=== PATIENT | female | born 1950 | race Caucasian/White ===

== ENCOUNTER 2017-06-19 13:18 | Emergency (ER) | payer MEDICARE, OTHER ==
[~2017-06-19] VITALS: Wt 113.6 kg
[2017-06-19] MEDS ORDERED: morphine 4 MG/ML VIAL IV STA (13:33)
[2017-06-19] MEDS ORDERED: SOD CHLORIDE 0.9% 1,000 ML IV STA (13:33)
[2017-06-19] MEDS ORDERED: FAMOTIDINE 20 MG INJ IV STA (13:33)
[2017-06-19] MEDS ORDERED: ONDANSETRON 4 MG INJ IV STA (13:33)
[2017-06-19 14:02] LABS: BASOPHILS % 0.1 % (0.0-2.0); HEMATOCRIT 43.7 % (37.0-47.0); HEMOGLOBIN 14.5 g/dl (12.0-16.0); LYMPHOCYTES # 0.6 10^3/ul (0.8-2.9); LYMPHOCYTES % 5.4 % (15.0-51.0); MEAN CORPUSCULAR HEMOGLOBIN 28.7 pg (29.0-33.0); MEAN CORPUSCULAR HGB CONC 33.2 g/dl (32.0-37.0); MEAN CORPUSCULAR VOLUME 86.5 fl (82.0-101.0); MEAN PLATELET VOLUME 10.2 fl (7.4-10.4); MONOCYTE # 0.5 10^3/ul (0.3-0.9); MONOCYTES % 3.9 % (0.0-11.0); NEUTROPHIL # 10.3 10^3/ul (1.6-7.5); NEUTROPHILS % 90.2 % (39.0-77.0); PLATELET COUNT 199 10^3/UL (140-415); RED BLOOD COUNT 5.05 10^6/ul (4.20-5.40); RED CELL DISTRIBUTION WIDTH 14.1 % (11.5-14.5); WHITE BLOOD COUNT 11.5 10^3/ul (4.8-10.8)
[2017-06-19 14:21] LABS: ALBUMIN/GLOBULIN RATIO 1.02; BILIRUBIN,INDIRECT 0.4 mg/dl (0-1.1); BILIRUBIN,TOTAL 0.4 mg/dl (0.2-1.3); POTASSIUM 4.5 mmol/L (3.5-5.1); TOTAL PROTEIN 7.9 g/dl (6.1-8.1)
[2017-06-19] MEDS ORDERED: SOD CHLORIDE 0.9% 100 ML ONE (14:40)
[2017-06-19] MEDS ORDERED: IOHEXOL 300MG/ML 150 ML BTL ONE (14:40)
[2017-06-19 15:06] LABS: ADD UMIC YES; UR ASCORBIC ACID NEGATIVE (NEGATIVE); UR BACTERIA MODERATE /HPF (NONE SEEN); UR BILIRUBIN (Dip) NEGATIVE (NEGATIVE); UR BLOOD (Dip) 1+ mg/dL (NEGATIVE); UR CLARITY CLOUDY (CLEAR); UR COLOR YELLOW (YELLOW); UR GLUCOSE (Dip) NEGATIVE (NEGATIVE); UR KETONES (Dip) NEGATIVE (NEGATIVE); UR LEUKOCYTE ESTERASE (Dip) TRACE Leu/ul (NEGATIVE); UR MUCUS FEW /HPF (NONE SEEN); UR NITRITE (Dip) POSITIVE (NEGATIVE); UR RBC 5 /HPF (0-5); UR SPECIFIC GRAVITY (Dip) 1.028 (1.003-1.030); UR SQUAMOUS EPITHELIAL CELL FEW /HPF (FEW); UR TOTAL PROTEIN (Dip) 1+ mg/dl (NEGATIVE); UR UROBILINOGEN (Dip) 1+ mg/dL (NEGATIVE)
[2017-06-19] MEDS ORDERED: CEFTRIAXONE 1 GM/50 ML (PMX) 50 ML IVPB ONE (15:30)
--- NOTE | 2017-06-19 15:59 | RADRPT ---
PROCEDURE: CT Abdomen and Pelvis with contrast. CLINICAL INDICATION: Abdomen and pelvis pain. Ventral hernia. TECHNIQUE: CT scan of the abdomen and pelvis with contrast was performed. The patient was scanned following the uncomplicated intravenous administration of 100 cc of Omnipaque-300. Coronal and sag ittal reformatted images were obtained from the axial source images. Images were reviewed on a high- resolution PACS workstation. Total exam DLP is 1808.39 mGy-cm. CTDIvol is 22.55 mGy. One or more of the following dose reduction techniques were used: Automated exposure control, adjustment of the mA and/or kV according to patient size, use of iterative reconstruction technique. COMPARISON: None. FINDINGS: This is a limited study due to patient body habitus. The lung bases are normal. There is no pleural effusion. The liver is normal in size and diffusely decreased attenuation consistent with fatty metamorphosis. There is no focal hepatic lesion. The gallbladder and bile ducts are normal. The spleen is normal in size. There is no focal splenic lesion. Both adrenals are normal with no enlargement or mass. The pancreas is unremarkable with no mass or evidence of pancreatitis. Both kidneys demonstrate normal contrast enhancement. There is either moderate bilateral hydroneph rosis are multiple renal sinus cysts. There is no solid renal mass or calculus. The perirenal region s are normal with no fluid collection or mass. The abdominal aorta is not dilated. There is no retroperitoneal lymphadenopathy or mass. There is no pelvic lymphadenopathy or mass. The bladder and distal ureters are normal. The periappendiceal region is unremarkable with no evidence of appendicitis. There is a large midline ventral hernia with herniated colon and small bowel. The opening in the ant erior abdominal wall at this site measures 4.7 x 4.2 cm entrance first and cranial caudal dimensions . There is dilated small bowel with air-fluid levels proximal to the hernia indicating small bowel o bstruction. Dilated bowel measures up to 4.5 cm in diameter. There is no free fluid or free gas. There are degenerative changes of the spine. There is no fracture or lytic lesion. IMPRESSION: 1. Limited study due to patient body habitus. 2. Fatty metamorphosis of the liver. 3. Moderate bilateral hydronephrosis or multiple renal sinus cysts. Clinical correlation advised. 4. There is midline ventral hernia with herniated colon and small bowel. There is associated small bowel obstruction. 5. Degenerative changes of the spine. 6. Otherwise unremarkable study. RPTAT: QQ .Brown Herndon MD, MD Date Time Electronically viewed and signed by .Brown Herndon MD, on 06/19/2017 15:59 .R/
[2017-06-19 16:21] VITALS: BP 145/73; PULSE 76; RESP 16
--- NOTE | 2017-06-19 16:55 | ERA ---
ER Documentation Chief Complaint Date/Time DATE: 06/19/17 TIME: 16:49 Chief Complaint NAUSEA AND CENTRAL ABDOMINAL PAIN FOR 2 DAYS. NO DYSURIA. NO DIARRHEA. HPI This is a 67-year-old female who presents to the emergency room for evaluation of abdominal pain, nausea and vomiting. The patient states that her abdominal pain is been present for 2 days duration. History is obtained from this patient 's daughter as this patient does not speak [place]. Eyes patient's daughter states that she does have a history of previous ovarian cancer and does get her care over at [facility]. She states that the patient's physician is Dr. Jesus Sales she is for an elective repair of a ventral hernia. The patient' s daughter and the patient both state that this hernia has not increased in size and state that is the same color it is always been. The patient denies any diarrhea associated with this, and was brought in to the emergency room by EMS for evaluation of nausea and abdominal pain and vomiting. The patient is taking Zofran however she keeps vomiting up the Zofran. ROS All systems reviewed and are negative except as per history of present illness. Allergies Allergies: Coded Allergies: No Known Allergy (Unverified , 06/19/17) PMhx/Soc History of Surgery: Yes (hysterectomy) Hx Cardiac Disorders: Yes (HTN) Hx Psychiatric Problems: No Hx Miscellaneous Medical Probl: Yes (ovarian CA) Hx Alcohol Use: No Hx Substance Use: No Hx Tobacco Use: No Smoking Status: Never smoker Physical Exam Vitals Vital Signs Date Time Temp Pulse Resp B/P Pulse Ox O2 Delivery O2 Flow Rate FiO2 06/19/17 16:21 76 16 145/73 96 Room Air 06/19/17 13:27 99.4 102 20 138/78 98 Physical Exam INITIAL VITAL SIGNS: Reviewed by me GENERAL: The patient is well developed and appropriate for usual state of health in no apparent distress HEENT: Pupils equal, round, and reactive to light. EOMI. There is no scleral icterus. NECK: C-spine is soft and supple, there is no meningismus. There is no cervical lymphadenopathy. LUNGS: Clear to auscultation bilaterally. There are no rales, wheezes or rhonchi. HEART: Regular rate and rhythm, no murmurs, clicks, rubs or gallops. ABDOMEN: Ventral hernia noted, partially reducible, tender to palpation, bowel sounds in all 4 bowel quadrants EXTREMITIES: There is no peripheral cyanosis or edema. No focal swelling or erythema. NEUROLOGICAL: The patient moves all four extremities with 5/5 strength. Cranial nerves II - XII are intact. Normal gait. Alert and oriented SKIN: There is no apparent rash or petechiae. HEME/LYMPHATIC: There is no evidence of excessive bruising or lymphedema. PSYCHIATRIC: The patient does not appear anxious or depressed. Result Diagram: 06/19/17 1340 06/19/17 1340 Results 24 hrs Laboratory Tests Test 06/19/17 13:40 06/19/17 14:20 White Blood Count 11.510^3/ul Red Blood Count 5.0510^6/ul Hemoglobin 14.5g/dl Hematocrit 43.7% Mean Corpuscular Volume 86.5fl Mean Corpuscular Hemoglobin 28.7pg Mean Corpuscular Hemoglobin Concent 33.2g/dl Red Cell Distribution Width 14.1% Platelet Count 80213^3/UL Mean Platelet Volume 10.2fl Neutrophils % 90.2% Lymphocytes % 5.4% Monocytes % 3.9% Eosinophils % 0.0% Basophils % 0.1% Nucleated Red Blood Cells % 0.0/100WBC Neutrophils # 10.310^3/ul Lymphocytes # 0.610^3/ul Monocytes # 0.510^3/ul Eosinophils # 0.010^3/ul Basophils # 0.010^3/ul Nucleated Red Blood Cells # 0.010^3/ul Sodium Level 140mmol/L Potassium Level 4.5mmol/L Chloride Level 100mmol/L Carbon Dioxide Level 33mmol/L Anion Gap 12 Blood Urea Nitrogen 25mg/dl Creatinine 1.00mg/dl Glucose Level 132mg/dl Lactic Acid Level 1.2mmol/L Calcium Level 10.0mg/dl Total Bilirubin 0.4mg/dl Direct Bilirubin 0.00mg/dl Indirect Bilirubin 0.4mg/dl Aspartate Amino Transf (AST/SGOT) 28IU/L Alanine Aminotransferase (ALT/SGPT) 48IU/L Alkaline Phosphatase 78IU/L Total Protein 7.9g/dl Albumin 4.0g/dl Globulin 3.90g/dl Albumin/Globulin Ratio 1.02 Lipase 23U/L Urine Color YELLOW Urine Clarity CLOUDY Urine pH 5.0 Urine Specific [place] 1.028 Urine Ketones NEGATIVEmg/dL Urine Nitrite POSITIVEmg/dL Urine Bilirubin NEGATIVEmg/dL Urine Urobilinogen 1+mg/dL Urine Leukocyte Esterase TRACELeu/ul Urine Microscopic RBC 5/HPF Urine Microscopic WBC 6/HPF Urine Squamous Epithelial Cells FEW/HPF Urine Bacteria MODERATE/HPF Urine Mucus FEW/HPF Urine Hemoglobin 1+mg/dL Urine Glucose NEGATIVEmg/dL Urine Total Protein 1+mg/dl Current Medications Medications (Trade) Dose Ordered Sig/Cleopatra Route PRN Reason Start Time Stop Time Status Last Admin Dose Admin Sodium Chloride (NS) 1,000 ml @ 1,000 mls/hr Q1H STAT IV 06/19/17 13:33 06/19/17 14:32 DC 06/19/17 13:48 Morphine Sulfate (morphine) 4 mg ONCE STAT IV 06/19/17 13:33 06/19/17 13:35 DC 06/19/17 13:47 Ondansetron HCl (Zofran Inj) 4 mg ONCE STAT IV 06/19/17 13:33 06/19/17 13:35 DC 06/19/17 13:48 Famotidine (Pepcid Iv) 20 mg ONCE STAT IV 06/19/17 13:33 06/19/17 13:35 DC 06/19/17 13:48 Iohexol 150 ml 150 ml STK-MED ONCE .ROUTE 06/19/17 14:40 06/19/17 14:41 DC 06/19/17 15:23 Sodium Chloride 100 ml @ ud STK-MED ONCE .ROUTE 06/19/17 14:40 06/19/17 14:41 DC 06/19/17 15:24 Ceftriaxone Sodium (Rocephin) 50 ml @ 100 mls/hr ONCE ONCE IVPB 06/19/17 15:30 06/19/17 15:59 DC 06/19/17 16:18 Procedures/MDM CT abdomen pelvis without: 1. Limited study due to patient body habitus. 2. Fatty metamorphosis of the liver. 3. Moderate bilateral hydronephrosis or multiple renal sinus cysts. Clinical correlation advised. 4. There is midline ventral hernia with herniated colon and small bowel. There is associated small bowel obstruction. 5. Degenerative changes of the spine. 6. Otherwise unremarkable study. This is a 67-year-old female who presents to the emergency room for evaluation of abdominal pain nausea and vomiting. When I evaluated patient she did have an apparent ventral hernia. I was able to partially reduce however the patient was in extreme amount of pain. The patient was given morphine and Zofran. When I went to reevaluate this patient this patient's daughter stated that they do get her PICC care at [facility] and Dr. Lopez is her physician. I did obtain a CT of the abdomen and pelvis which shows midline ventral hernia with herniated colon and small bowel in the associated small bowel obstruction. There is no edema of the bowel wall, no elevation in lactic acid. I did speak to the patient's family and the patient in regards to her diagnosis. They stated that they want to be transferred to [facility]. I have contacted [facility] have spoken to the on-call surgeon covering Dr. Sales. This surgeon's name is Dr. eleonora posada have reviewed the case with him. He recommends that this patient be evaluated by her on-call general surgeon here in the emergency room. I have relayed this information back to the family who state he do not want this patient evaluated by any other surgeon other than Dr. Sales, and I explained at this patient's general surgeon Dr. Sales is not available and probably will not be available until Wednesday per Dr. Coleman. I have discussed transfer to [facility] emergency room, and they stated that they would like to drive over to [facility] emergency room themselves. They do not want to be evaluated by on-call general surgeon at this time. They state that they would like to sign out AGAINST MEDICAL ADVICE. I have discussed the risks of leaving AGAINST MEDICAL ADVICE including the risk of worsening obstruction, vomiting, , perforation and family has verbalized understanding. The patient verbalizes understanding and has capacity to make medical decisions. They will be discharged at this time with a prescription for ciprofloxacin for cystitis, and Zofran ODT.\ Against Medical Advice Note The patient verbalized understanding of risks of signing out against medical advice including and disability. The patient explained to me the reason for wanting to sign out against medical advice, to get her care over at [facility], and they do not want to be evaluated by general surgery at this facility and did not want to wait for transfer.. The patient is alert and oriented x 3 with decisional capacity and competence to sign out. They were welcomed to come back to ER and will be going home with discharge paperwork. Departure Diagnosis: Primary Impression: Abdominal pain Additional Impressions: Ventral hernia Small bowel obstruction Acute cystitis Left against medical advice Condition: PING Chavez DO Jun 19, 2017 16:55
[2017-06-19] MEDS ORDERED: CIPR500T4 PO (16:56)
[2017-06-19] MEDS ORDERED: ONDA4TAB14 PO (16:56)
== END 2017-06-19 17:15 | disposition left against medical advice (07) ==
LOC: E/R 13:18
DX: K43.9 Ventral hernia without obstruction or gangrene (principal); N30.00 Acute cystitis without hematuria; I10 Essential (primary) hypertension; Z85.43 Personal history of malignant neoplasm of ovary
CPT/HCPCS: 36415; 74177; 80053; 81001; 83605; 83690; 85025; 96374; 96375; 99285; J0696; J2270; J2405; J7030; Q9967